=== PATIENT | female | born 1975 | race Caucasian/White ===

== ENCOUNTER 2016-10-24 08:15 | Emergency (ER) | payer OTHER ==
[~2016-10-24] VITALS: Ht 157.5 cm; Wt 88.9 kg
[2016-10-24 10:09] VITALS: BP 118/68
== END 2016-10-24 10:09 | disposition home or self-care (01) ==
LOC: ED 08:15
DX: M54.42 Lumbago with sciatica, left side (principal); M79.7 Fibromyalgia; G43.909 Migraine, unspecified, not intractable, without status migrainosus
CPT/HCPCS: J1170; J1885; Q0162

== ENCOUNTER 2016-10-29 20:37 | Emergency (ER) | payer OTHER ==
[2016-10-29 22:46] VITALS: BP 109/49
== END 2016-10-29 22:46 | disposition home or self-care (01) ==
LOC: ED 20:37
DX: R07.9 Chest pain, unspecified (principal); F41.9 Anxiety disorder, unspecified; R22.31 Localized swelling, mass and lump, right upper limb; R22.32 Localized swelling, mass and lump, left upper limb; F32.9 Major depressive disorder, single episode, unspecified; G43.909 Migraine, unspecified, not intractable, without status migrainosus; M79.7 Fibromyalgia; Z79.2 Long term (current) use of antibiotics